=== PATIENT | male | born 1995 | race Caucasian/White ===

== ENCOUNTER 2018-04-30 02:14 | Emergency (ER) | payer OTHER ==
[~2018-04-30] VITALS: Ht 177.8 cm; Wt 77.4 kg
[2018-04-30] MEDS ORDERED: ACETAMINOPHEN 500 MG TABLET ONE (02:41)
[2018-04-30] MEDS ORDERED: DICYCLOMINE 20 MG TABLET ONE (02:41)
[2018-04-30 03:00] LABS: BASOPHILS # (AUTO) 0.09 x10^3/uL (0-0.1); BASOPHILS % (AUTO) 1 % (0-1); EOSINOPHILS # (AUTO) 0.08 x10^3/uL (0-0.4); EOSINOPHILS % (AUTO) 1 % (1-7); LYMPHOCYTES # (AUTO) 1.71 x10^3/uL (1-3.4); LYMPHOCYTES % (AUTO) 12 % (22-44); MD NO; MEAN CORPUSCULAR VOLUME 94.2 fL (81-97); MEAN PLATELET VOLUME 8.6 fL (7.4-10.4); MONOCYTES # (AUTO) 0.61 x10^3/uL (0.2-0.8); MONOCYTES % (AUTO) 4 % (2-9); NEUTROPHILS # (AUTO) 12.03 x10^3/uL (1.8-6.8); NEUTROPHILS % (AUTO) 83 % (42-75); PLATELET COUNT 246 x10^3/uL (130-400); RED BLOOD COUNT 4.79 x10^6/uL (4.38-5.82)
[2018-04-30] MEDS ORDERED: DICYCLOMINE 20 MG TABLET PO ONE (03:00)
[2018-04-30] MEDS ORDERED: PROMETHAZINE 25MG TABLET PO PRN (03:00)
[2018-04-30] MEDS ORDERED: ACETAMINOPHEN 500 MG TABLET PO ONE (03:00)
[2018-04-30] MEDS ORDERED: PLEASE ENTER ALLERGIES MC SCH (03:00)
[2018-04-30 03:09] LABS: ALANINE AMINOTRANSFERASE 33 U/L (12-78); ALBUMIN 4.2 g/dL (3.4-5.0); ANION GAP 7 mmol/L (5-15); CALCIUM 9.1 mg/dL (8.5-10.1); CHLORIDE 103 mmol/L (98-107)
[2018-04-30 03:12] LABS: ALKALINE PHOSPHATASE 60 U/L (45-117); BILIRUBIN,TOTAL 0.3 mg/dL (0.2-1.0); CREATININE 1.05 mg/dL (0.7-1.3)
[2018-04-30 03:30] VITALS: BP 128/56
== END 2018-04-30 04:00 | disposition home or self-care (01) ==
LOC: ED 03:45
DX: R19.7 Diarrhea, unspecified (principal); R10.32 Left lower quadrant pain; R10.31 Right lower quadrant pain; S30.1XXA Contusion of abdominal wall, initial encounter; W18.30XA Fall on same level, unspecified, initial encounter; Y93.89 Activity, other specified; Y92.89 Other specified places as the place of occurrence of the external cause; Y93.64 Activity, baseball; Y99.8 Other external cause status
CPT/HCPCS: 36415; 80053; 83690; 85025; 99284